=== PATIENT | female | born 1960 | race Caucasian/White ===

== ENCOUNTER 2022-01-28 13:16 | Emergency (ER) | payer BC, OTHER ==
[2022-01-28 13:46] VITALS: BP 148/94; PULSE 116
[2022-01-28] MEDS ORDERED: Sodium Chloride 0.9% 10 ML Syringe FLUSH PRN (14:02)
[2022-01-28] MEDS ORDERED: Sodium Chloride 0.9% 1,000 ML IV SCH (14:15)
[2022-01-28] MEDS ORDERED: Iopamidol 755 Mg/ML 100 ML Bottle IV ONE (14:17)
[2022-01-28] MEDS ORDERED: Sodium Chloride 0.9% 75 ML IV SCH (14:30)
[2022-01-28] MEDS ORDERED: fentaNYL 100 MCG/2 ML SDV IVPUSH ONE (16:02)
== END 2022-01-28 16:27 | disposition home or self-care (01) ==
LOC: JP.ED 13:16
DX: R60.0 Localized edema (principal); Z87.891 Personal history of nicotine dependence; Z79.899 Other long term (current) drug therapy
CPT/HCPCS: 71275; 71275-26; 96374; 99283; 99284-25; J3010; J3490; J7030; Q9967